=== PATIENT | male | born 2000 | race Caucasian/White ===

== ENCOUNTER 2019-12-22 12:57 | Emergency (ER) | payer SELFPAY ==
[~2019-12-22] VITALS: Ht 175.3 cm; Wt 109.1 kg
[2019-12-22 13:02] VITALS: BP 131/68; TEMP 98.7
[2019-12-22 13:35] LABS: STREP SCREEN NEGATIVE
[2019-12-22 14:13] VITALS: PULSE 89
== END 2019-12-22 14:14 | disposition home or self-care (01) ==
LOC: COL.ER 12:57
PROVIDERS: Nurse Practitioner Primary Care
DX: J06.9 Acute upper respiratory infection, unspecified (principal)

== ENCOUNTER 2024-03-03 20:06 | Emergency (ER) | payer SELFPAY ==
[~2024-03-03] VITALS: Ht 175.3 cm; Wt 131.8 kg
[2024-03-03 20:18] VITALS: TEMP 98.2
[2024-03-03] MEDS ORDERED: NS 1,000 ML IV ONE (21:00)
[2024-03-03] MEDS ORDERED: Ketorolac 30 MG/ML VIAL IV ONE (21:00)
[2024-03-03 21:34] LABS: URINE APPEARANCE CLEAR (CLEAR/HAZY); URINE BLOOD NEGATIVE (NEGATIVE); URINE COLOR YELLOW (YELLOW); URINE GLUCOSE NEGATIVE (NEGATIVE); URINE KETONE TRACE (NEGATIVE); URINE NITRATE NEGATIVE (NEGATIVE); URINE PROTEIN(semi-quant) NEGATIVE (NEGATIVE)
[2024-03-03 21:35] LABS: BASO # 0.1 K/mm3 (0.0-0.2); BASO % 0.5 % (0.0-2.0); EOS # 0.1 K/mm3 (0.0-0.7); EOS % 0.8 % (0.0-4.0); GRAN # 7.2 K/mm3 (1.4-6.5); GRAN % 63.9 % (42.2-75.2); HEMATOCRIT 49.1 % (42.0-52.0); HEMOGLOBIN 15.9 g/dl (13.5-18.0); LYMPH # 2.6 K/mm3 (1.2-3.4); LYMPH % 23.5 % (20.0-51.0); MEAN CELL VOLUME 89 fl (80.0-100.0); MEAN CORPUSCULAR HEMOGLOBIN 29 pg (27-31); MEAN CORPUSCULAR HGB CONC 32 g/dl (33.0-37.0); MEAN PLATELET VOLUME 10.4 fl (7.4-10.4); MONO # 1.2 K/mm3 (0.1-0.6); MONO % 10.9 % (1.7-9.3); PLATELET COUNT 326 K/mm3 (130-400); RED BLOOD COUNT 5.54 M/mm3 (4.20-5.60); REDCELL DISTRIBUTION WIDTH-CV 12.6 % (11.5-14.5)
[2024-03-03 21:49] LABS: ALBUMIN 4.1 g/dL (3.5-5.0); BILIRUBIN,TOTAL 0.3 mg/dL (0.2-1.2); CALCIUM 9.8 mg/dL (8.4-10.2); CREATININE, serum 1.26 mg/dL (0.72-1.25); POTASSIUM 4.2 mEq/L (3.5-4.5); TOTAL PROTEIN 7.4 g/dl (6.2-8.1)
[2024-03-03] MEDS ORDERED: Acetaminophen 325 MG TAB PO ONE (22:00)
[2024-03-03] MEDS ORDERED: Cyclobenzaprine 10 MG TAB PO ONE (22:00)
[2024-03-03] MEDS ORDERED: MOBIC 7.5MG7.5 MG PO (22:06)
[2024-03-03] MEDS ORDERED: FLEXERIL 1010 MG/TAB PO (22:06)
[2024-03-03 22:28] VITALS: BP 140/82; PULSE 77
[2024-03-03 22:40] LABS: COLLECTION METHOD CLEAN CATCH
== END 2024-03-03 22:29 | disposition home or self-care (01) ==
LOC: COL.ER 20:06
PROVIDERS: Nurse Practitioner Primary Care
DX: M54.6 Pain in thoracic spine (principal)
CPT/HCPCS: J1885; J7030